=== PATIENT | female | born 1985 ===

== ENCOUNTER 2021-10-15 09:41 | Inpatient (IN) | payer OTHER ==
[2021-10-10 14:14] LABS: Hemoglobin 12.5 gm/dl (10.1-14.3); Mean Corpuscular HGB Conc 35 % (30-34); Mean Corpuscular Volume 97 fl (79-97); Platelet Count 241 K/mm3 (140-440); Red Blood Count 3.71 M/mm3 (3.65-5.03); Red Cell Distribution Width 14.1 % (13.2-15.2)
--- NOTE | 2021-10-15 09:26 | History and Physical Report ---
History of Present Illness Date of examination: 10/15/21 Medications and Allergies Allergies Allergy/AdvReac Type Severity Reaction Status Date / Time No Known Allergies Allergy Unverified 10/08/21 16:49 Home Medications Medication Instructions Recorded Confirmed Last Taken Type Vit-Fe Fumar-FA [ 1 tab PO QDAY 10/08/21 10/08/21 Unknown Hist ory Vitamin] - Vital Signs Vital signs: Vital Signs Temp Pulse Resp BP Pulse Ox 97.7 F 121 H 20 105/72 98 10/10/21 12:45 10/10/21 12:45 10/10/21 12:45 10/10/21 12:45 10/10/21 12:45 Temp Pulse Resp BP Pulse Ox 97.7 F 121 H 20 105/72 98 10/10/21 12:45 10/10/21 12:45 10/10/21 12:45 10/10/21 12:45 10/10/21 12:45 Results Result Diagrams: 10/10/21 13:40 All other labs normal.
[2021-10-15] MEDS ORDERED: METOCLOPRAMIDE 10 MG/2 ML INJ IV NR (09:43)
[2021-10-15] MEDS ORDERED: BICITRA ORAL LIQD 30ML PO NR (09:43)
[2021-10-15] MEDS ORDERED: FAMOTIDINE 20 MG/2 ML INJ IV NR (09:43)
[2021-10-15] MEDS ORDERED: OXYTOCIN DRIP 30 UNITS/500 ML BAG IV SCH ×3 (10:00→11:00)
[2021-10-15] MEDS ORDERED: ceFAZolin/Water 2 GM/20 ML 2 GM/20 ML SYRINGE IV NR (10:00)
--- NOTE | 2021-10-15 10:05 | Anesthesia Consultation ---
Anesthesia Consult and Med Hx Date of service: 10/15/21 - Airway Anesthetic Teeth Evaluation: Poor ROM Head & Neck: Adequate Mental/Hyoid Distance: Adequate Mallampati Class: Class II Intubation Access Assessment: Good - Pulmonary Exam CTA: Yes - Cardiac Exam Cardiac Exam: RRR - Pre-Operative Health Status ASA Pre-Surgery Classification: ASA2 Proposed Anesthetic Plan: Epidural - Pulmonary Hx Smoking: No Hx Asthma: No - Cardiovascular System Hx Hypertension: No - Central Nervous System Hx Neuromuscular Disorder: No Hx Seizures: No Hx Psychiatric Problems: No - Gastrointestinal Hx Gastroesophageal Reflux Disease: Yes - Hematic Hx Anemia: Yes - Other Systems Hx Alcohol Use: No Hx Substance Use: No Hx Cancer: No Hx Obesity: Yes
--- NOTE | 2021-10-15 10:05 | Anesthesia Day of Surgery ---
Anesthesia Day of Surgery - Day of Surgery Patient Examined: Yes Patient H&P Reviewed: Yes Patient is NPO: Yes
[2021-10-15] MEDS ORDERED: LIDOCAINE (2%) 20 MG/1 ML VIAL 20 ML MDV INFILTRATI NR (10:56)
[2021-10-15] MEDS ORDERED: AMPICILLIN/NS 2 GM/100 ML 2 GM/100 ML BAG IV ONE ×2 (10:56→14:04)
[2021-10-15] MEDS ORDERED: CARBOPROST TROMETHAMINE 250 MCG/1 ML INJ IM PRN (11:00)
[2021-10-15] MEDS ORDERED: TERBUTALINE 1 MG/1 ML INJ SUB-Q PRN (11:00)
[2021-10-15] MEDS ORDERED: LOPERAMIDE 2 MG CAP PO PRN (11:00)
[2021-10-15] MEDS ORDERED: miSOPROStol 200 MCG TAB PR PRN (11:00)
[2021-10-15] MEDS ORDERED: ACETAMINOPHEN 325 MG TAB PO PRN ×2 (11:00→17:10)
[2021-10-15] MEDS ORDERED: OXYTOCIN 10 UNIT/1 ML INJ IM PRN (11:00)
[2021-10-15] MEDS ORDERED: METHYLERGONOVINE MALEATE 0.2 MG/ML VIAL IM PRN (11:00)
[2021-10-15] MEDS ORDERED: BUTORPHANOL 2 MG/1 ML INJ IV PRN ×2 (11:00)
[2021-10-15] MEDS ORDERED: fentaNYL 100 MCG/2 ML INJ IV NR (11:00)
[2021-10-15] MEDS ORDERED: ePHEDrine SULFATE 50 MG/1 ML INJ IV PRN (11:00)
--- NOTE | 2021-10-15 11:07 | History and Physical Report ---
History of Present Illness Date of examination: 10/15/21 Date of admission: 10/15/21 09:41 Chief complaint: Presents for a scheduled repeat ; but having contractions and desires . History of present illness: Care of [facility]; course complicatd by Anemia (PO FeSO4); and a placenta previa (resolved 08/29/2021). Past History Past Medical History: other (Covid on 06/10/2021) Past Surgical History: [employer]/uterine surgery () [employer] History: chlamydia (2019) Family/Genetic History: none Social history: no significant social history - Obstetrical History Expected Date of Delivery: 10/22/21 Actual Gestation: 39 Week(s) 0 Day(s) : 3 Para: 2 Hx # Term Pregnancies: 2 Number of Living Children: 2 #1 Gender: Male year: 2,016 Birthweight: 3.629 kg Method of Delivery: Gestational age at delivery: 40 Complications: other ( Distress ()) #2 year: 2,013 Birthweight: 3.175 kg Method of Delivery: Gestational age at delivery: 40 Medications and Allergies Allergies Allergy/AdvReac Type Severity Reaction Status Date / Time No Known Allergies Allergy Unverified 10/08/21 16:49 Home Medications Medication Instructions Recorded Confirmed Last Taken Type Vit-Fe Fumar-FA [ 1 tab PO QDAY 10/08/21 10/08/21 Unknown History Vitamin] Active Meds: Active Medications Acetaminophen (Acetaminophen 325 Mg Tab) 650 mg PO Q4H PRN PRN Reason: Pain, Mild (1-3) Butorphanol Tartrate (Butorphanol 2 Mg/1 Ml Inj) 1 mg IV Q2H PRN PRN Reason: Pain, Moderate(4-6) LABOR PAIN Butorphanol Tartrate (Butorphanol 2 Mg/1 Ml Inj) 2 mg IV Q2H PRN PRN Reason: Pain , Severe (7-10) Carboprost Tromethamine (Carboprost Tromethamine 250 Mcg/1 Ml Inj) 250 mcg IM ONCE PRN PRN Reason: Uterine Bleeding Citric Acid/Sodium Citrate (Bicitra Oral Liqd 30ml) 30 ml PO ONCE NR Stop: 10/15/21 20:00 Ephedrine Sulfate (Ephedrine Sulfate 50 Mg/1 Ml Inj) 10 mg IV Q2M PRN PRN Reason: Hypotension Famotidine (Famotidine 20 Mg/2 Ml Inj) 20 mg IV ONCE NR Stop: 10/15/21 20:00 Fentanyl (Fentanyl 100 Mcg/2 Ml Inj) 100 mcg IV ONCE ONE Stop: 10/15/21 11:01 Lactated Ringer's (Lactated Ringers) 1,000 mls @ 2,250 mls/hr IV PREOP BRITTA Stop: 10/16/21 10:27 Oxytocin/Sodium Chloride (Pitocin/Ns 30 Unit/500ml) 30 units in 500 mls @ 0 mls/hr IV TITR BRITTA; Protocol Cefazolin Sodium (Ancef/Sterile Water 2 Gm/20 Ml) 2 gm in 20 mls @ 80 mls/hr IV PREOP NR; Protocol Stop: 10/15/21 20:00 Oxytocin/Sodium Chloride (Pitocin/Ns 30 Unit/500ml) 30 units in 500 mls @ 2 mls/hr IV TITR BRITTA; Protocol Oxytocin/Sodium Chloride (Pitocin/Ns 30 Unit/500ml) 30 units in 500 mls @ 40 mls/hr IV TITR BRITTA; Protocol Ampicillin Sodium (Ampicillin/Ns 1 Gm/50 Ml) 1 gm in 50 mls @ 100 mls/hr IV Q4H BRITTA; Protocol Ampicillin Sodium (Ampicillin/Ns 2 Gm/100 Ml) 2 gm in 100 mls @ 100 mls/hr IV ONCE ONE; Protocol Stop: 10/15/21 11:55 Lidocaine (Lidocaine (2%) 20 Mg/1 Ml Vial 20 Ml Mdv) 20 ml INFILTRATI ONCE ONE Stop: 10/15/21 10:57 Loperamide HCl (Loperamide 2 Mg Cap) 2 mg PO ONCE PRN PRN Reason: give with Hemabate Methylergonovine Maleate (Methylergonovine Maleate 0.2 Mg/Ml Vial) 0.2 mg IM ONCE PRN PRN Reason: Uterine Bleeding Metoclopramide HCl (Metoclopramide 10 Mg/2 Ml Inj) 10 mg IV ONCE NR Stop: 10/15/21 20:00 Mineral Oil (Mineral Oil 30 Ml Oral Liqd) 30 ml PO QHS PRN PRN Reason: Constipation Misoprostol (Misoprostol 200 Mcg Tab) 800 mcg [place] ONCE PRN PRN Reason: Uterine Bleeding Oxytocin (Oxytocin 10 Unit/1 Ml Inj) 10 unit IM ONCE PRN PRN Reason: Uterine Bleeding Terbutaline Sulfate (Terbutaline 1 Mg/1 Ml Inj) 0.25 mg SUB-Q ONCE PRN PRN Reason: Hyperstimulation/Hypertonicity Review of Systems All systems: negative - Vital Signs Vital signs: Vital Signs Temp Pulse Resp BP Pulse Ox 97.7 F 121 H 20 105/72 98 10/10/21 12:45 10/10/21 12:45 10/10/21 12:45 10/10/21 12:45 10/10/21 12:45 Temp Pulse Resp BP Pulse Ox 98.2 F 101 H 18 105/75 94 10/15/21 10:06 10/15/21 10:59 10/15/21 10:06 10/15/21 10:06 10/15/21 10:59 - Physical Exam Breasts: Positive: normal Cardiovascular: Regular rate Lungs: Positive: Clear to auscultation Abdomen: Positive: normal appearance, soft, normal bowel sounds Genitourinary (Female): Positive: normal external genitalia, normal perenium Vagina: Positive: normal moisture Uterus: Positive: enlarged - Obstetrical FHR: category 1 Uterine Contraction Monitor Mode: External Cervical Dilatation: 6 (ROM upon exam of a moderate amount of clear fluid @ 1 045; VTX) Cervical Effacement Percentage: 70 station: -3 Uterine Contraction Frequency (min): 3 Uterine Contraction Pattern: Regular Uterine Tone Measurement Phase: Resting Uterine Contraction Intensity: Moderate Results Result Diagrams: 10/10/21 13:40 All other labs normal. Assessment and Plan A: IUP @ 39 Weeks Category I Tracing Previous Active Labor AMA GBS Unknown P: Admit to L&D Per Routine Orders Dr. Flores agrees to trail of labor for GBS Prophylaxis
--- NOTE | 2021-10-15 11:27 | Ultrasound Report ---
US OB limited INDICATION: presetaion,placental location. TECHNIQUE: Transabdominal. COMPARISON: None available. FINDINGS: There is a single intrauterine . Heart Rate: 150 beats per minute. Position: cephalic. Signer Name: Amrit Mccarthy MD Signed: 10/15/2021 11:22 AM Workstation Name: [id number]
[2021-10-15 12:53] LABS: Basophils % (Auto) 0.2 % (0.0-1.8); Eosinophils % (Auto) 0.2 % (0.0-4.3); Hematocrit 39.3 % (30.3-42.9); Hemoglobin 13.3 gm/dl (10.1-14.3); Lymphocytes # (Auto) 2.1 K/mm3 (1.2-5.4); Lymphocytes % (Auto) 18.2 % (13.4-35.0); Mean Corpuscular HGB Conc 34 % (30-34); Mean Corpuscular Volume 96 fl (79-97); Monocytes # (Auto) 0.7 K/mm3 (0.0-0.8); Monocytes % (Auto) 5.8 % (0.0-7.3); Platelet Count 240 K/mm3 (140-440); Red Blood Count 4.07 M/mm3 (3.65-5.03); Red Cell Distribution Width 13.9 % (13.2-15.2)
[2021-10-15] MEDS: LACTATED RINGERS 1,000 ML IV SCH ×2 (14:31→15:32)
--- NOTE | 2021-10-15 16:05 | Progress Note ---
Assessment and Plan A: IUP @ 39 Weeks Category I Tracing Previous Protracted Labor AMA GBS Unknown P: Internals x 2 Placed Continue Pitocin Augmentation Continue GBS Prophylaxis Dr. Flores Consulted Subjective - Subjective Date of service: 10/15/21 Interval history: Care of [facility]; course complicatd by Anemia (PO FeSO4); and a placenta previa (resolved 08/29/2021). Patient reports: movement normal, contractions Objective - Vital Signs Vital Signs: Vital Signs - 12hr 10/15/21 10/15/21 10/15/21 10:03 10:04 10:06 Temperature 98.2 F Pulse Rate 90 Respiratory 18 Rate Blood Pressure 105/75 Blood Pressure 105/75 [Right] O2 Sat by Pulse 100 97 Oximetry O2 Sat by Pulse Oximetry [ Anterior Bilateral Throughout] 10/15/21 10/15/21 10/15/21 10:08 10:13 10:18 Temperature Pulse Rate 95 H 121 H 109 H Respiratory Rate Blood Pressure Blood Pressure [Right] O2 Sat by Pulse 96 96 96 Oximetry O2 Sat by Pulse Oximetry [ Anterior Bilateral Throughout] 10/15/21 10/15/21 10/15/21 10:23 10:28 10:33 Temperature Pulse Rate 122 H 85 114 H Respiratory Rate Blood Pressure Blood Pressure [Right] O2 Sat by Pulse 98 94 97 Oximetry O2 Sat by Pulse Oximetry [ Anterior Bilateral Throughout] 10/15/21 10/15/21 10/15/21 10:39 10:44 10:45 Temperature Pulse Rate 87 117 H 115 H Respiratory Rate Blood Pressure Blood Pressure [Right] O2 Sat by Pulse 93 96 94 Oximetry O2 Sat by Pulse Oximetry [ Anterior Bilateral Throughout] 10/15/21 10/15/21 10/15/21 10:49 10:54 10:59 Temperature Pulse Rate 101 H 98 H 101 H Respiratory Rate Blood Pressure Blood Pressure [Right] O2 Sat by Pulse 92 93 94 Oximetry O2 Sat by Pulse Oximetry [ Anterior Bilateral Throughout] 10/15/21 10/15/21 11:04 11:41 Temperature Pulse Rate 100 H Respiratory Rate Blood Pressure Blood Pressure [Right] O2 Sat by Pulse 91 Oximetry O2 Sat by Pulse 97 Oximetry [ Anterior Bilateral Throughout] - Exam Breasts: normal Cardiovascular: Regular rate Lungs: Normal air movement Abdomen: Present: normal appearance, soft Uterus: Present: normal, firm, fundal height above umbilicus FHR: category 1 Uterine Contraction Monitor Mode: Internal Cervical Dilatation: 6.5 Cervical Effacement Percentage: 70 station: -2 Uterine Contraction Pattern: Irregular Uterine Tone Measurement Phase: Resting Uterine Contraction Intensity: Moderate Extremities: normal - Labs Labs: Abnormal Labs 10/10/21 10/15/21 13:40 12:19 WBC 11.4 H MCH 34 H 33 H MCHC 35 H Seg Neutrophils % 75.6 H Seg Neutrophils # 8.6 H Laboratory Results - last 24 hr 10/15/21 12:19 WBC 11.4 H RBC 4.07 Hgb 13.3 Hct 39.3 MCV 96 MCH 33 H MCHC 34 RDW 13.9 Plt Count 240 Lymph % (Auto) 18.2 Greene % (Auto) 5.8 Eos % (Auto) 0.2 Baso % (Auto) 0.2 Lymph # (Auto) 2.1 Greene # (Auto) 0.7 Eos # (Auto) 0.0 Baso # (Auto) 0.0 Seg Neutrophils % 75.6 H Seg Neutrophils # 8.6 H
[2021-10-15] MEDS ORDERED: PROMETHAZINE 25 MG RECT SUPP PR PRN (17:10)
[2021-10-15] MEDS ORDERED: MAGNESIUM HYDROXIDE (MOM) ORAL LIQD UDC PO PRN (17:10)
[2021-10-15] MEDS ORDERED: LANOLIN/ZINC/DIMETHICONE (LANSINOH) 7 GM TP PRN (17:10)
[2021-10-15] MEDS ORDERED: diphenhydrAMINE 25 MG CAP PO PRN (17:10)
[2021-10-15] MEDS ORDERED: HYDROcodone/ACETAMINOPHEN 5-325 MG TAB PO PRN (17:10)
[2021-10-15] MEDS ORDERED: oxyCODONE /ACETAMINOPHEN 5-325MG TAB PO PRN (17:10)
[2021-10-15] MEDS ORDERED: PROMETHAZINE 25 MG TAB PO PRN (17:10)
[2021-10-15] MEDS ORDERED: KETOROLAC 30 MG/1 ML INJ IV PRN (17:10)
[2021-10-15] MEDS ORDERED: WITCH HAZEL/ GLYCERIN PAD TP PRN (17:10)
[2021-10-15] MEDS ORDERED: ONDANSETRON 4 MG/2 ML INJ IV PRN (17:10)
--- NOTE | 2021-10-15 17:36 | Procedure Note ---
OB Delivery Note - Delivery Date of Delivery: 10/15/21 Surgeon: YAEL HERNANDEZ Estimated blood loss: other (250) - Vaginal Delivery presentation: vertex Delivery position: OA Intrapartum events: prolonged active phase Delivery induction: none Delivery augmentation: pitocin Delivery monitor: internal FHT, internal uterine Route of delivery: Delivery placenta: spontaneous Delivery cord: 3 umbilical vessels, other (short cord) Episiotomy: none Delivery laceration: 1st degree Delivery repair: vicryl Anesthesia: local Delivery comments: of a live 7'8 male over 1st degree bilateral labial lacerations and 1st degree vaginal laceration under IV pain control with Apgars of 8 and 9 at 1653 on 10/15/2021. Infant directly to maternal abd/chest, skin to skin contact. Vaginal lacerations repaired with 2-[address]-1 under local 2% Lidocaine. Spontaneous delivery of placenta complete and intact with Haskins side presenting at 1700. Fundus is firm and midline located 4 below U. Lochia is scant. Cord blood collected; Placenta discarded. Delayed cord clamping and cutting; Cord cut by the Father of the baby. GBS prophylaxis x 1. - A at 1 minute: 8 at 5 minutes: 9 Infant Gender: Male (7'8)
[2021-10-15] MEDS ORDERED: AMPICILLIN/NS 1 GM/50 ML 1 GM/50 ML BAG IV SCH (18:00)
[2021-10-15] MEDS: IBUPROFEN 600 MG TAB PO SCH ×2 (18:52→23:31)
[2021-10-15] MEDS ORDERED: MINERAL OIL 30 ML ORAL LIQD PO PRN (22:00)
[2021-10-16] MEDS: IBUPROFEN 600 MG TAB PO SCH ×3 (05:27→16:34)
[2021-10-16 09:32] LABS: Hematocrit 30.5 % (30.3-42.9); Hemoglobin 10.2 gm/dl (10.1-14.3)
--- NOTE | 2021-10-16 09:32 | Progress Note ---
Subjective - Subjective Date of service: 10/16/21 Objective - Vital Signs Latest vital signs: Vital Signs Temp Pulse Resp BP BP Pulse Ox Pulse Ox 10/16/21 08:16 99 10/16/21 07:48 97.6 F 104 H 18 93/67 99 10/16/21 05:27 20 10/16/21 05:00 98.9 F 101 H 20 119/68 100 10/15/21 23:57 98.2 F 99 H 20 109/63 99 10/15/21 23:31 20 10/15/21 21:19 98.2 F 113 H 20 98/61 98 10/15/21 19:45 99 10/15/21 18:32 99.1 F 99 H 18 120/73 99 10/15/21 18:19 101 H 98 10/15/21 18:14 107 H 98 10/15/21 18:09 109 H 98 10/15/21 18:07 111 H 105/65 10/15/21 18:04 108 H 97 10/15/21 17:59 108 H 97 10/15/21 17:57 114 H 150/77 10/15/21 17:54 110 H 97 10/15/21 17:50 98.0 F 10/15/21 17:49 111 H 97 10/15/21 17:44 110 H 98 10/15/21 17:39 31 L 95 10/15/21 17:37 110 H 132/75 10/15/21 17:26 102 H 110/64 10/15/21 17:16 103 H 110/64 10/15/21 17:07 102 H 105/62 10/15/21 16:49 107 H 126/73 10/15/21 16:39 109 H 133/78 10/15/21 14:00 98.8 F 10/15/21 12:02 98.8 F 10/15/21 11:41 97 10/15/21 11:04 100 H 91 10/15/21 10:59 101 H 94 10/15/21 10:54 98 H 93 10/15/21 10:49 101 H 92 10/15/21 10:45 115 H 94 10/15/21 10:44 117 H 96 10/15/21 10:39 87 93 10/15/21 10:33 114 H 97 10/15/21 10:28 85 94 05/02/22 10:23 122 H 98 10/15/21 10:18 109 H 96 10/15/21 10:13 121 H 96 10/15/21 10:08 95 H 96 10/15/21 10:06 98.2 F 18 105/75 97 10/15/21 10:04 90 105/75 10/15/21 10:03 100 Intake and Output 10/15/21 10/16/21 10/16/21 23:59 07:59 15:59 Intake Total 240 Output Total 400 600 Balance -160 -600 Intake: Oral 240 Output: Urine 400 600 Void 400 600 Other: Total, Intake Amount 240 Total, Output Amount 400 600 # Voids Void 1 2 Estimated Blood Loss 200 - Labs Labs: Abnormal lab results 10/15/21 Range/Units 12:19 WBC 11.4 H (4.5-11.0) K/mm3 MCH 33 H (28-32) pg Seg Neutrophils % 75.6 H (40.0-70.0) % Seg Neutrophils # 8.6 H (1.8-7.7) K/mm3
--- NOTE | 2021-10-16 13:05 | Discharge Summary ---
Providers - Providers Date of Admission: 10/15/21 09:41 10/15/21 Date of discharge: 10/17/21 Attending physician: AARON HOANG MD none Primary care physician: AARON HOANG MD Hospitalization Delivery: Episiotomy: none Laceration: 1st degree complications: none Discharge diagnosis: IUP at term delivered, baby: male Hospital course: unremarkable Condition at discharge: Good Disposition: 01 HOME / SELF CARE / HOMELESS - Discharge Diagnoses (1) , delivered Status: Acute Comment: patient delivered without complications Plan - Provider Discharge Summary Additional instructions: [] Smoking cessation referral if applicable(refer to patient education folder for contact #) [] Refer to [facility] Booklet Call your doctor immediately for: * Fever > 100.5 * Heavy vaginal bleeding ( >1 pad per hour) * Severe persistent headache * Shortness of breath * Reddened, hot, painful area to leg or breast * Drainage or odor from incision. * Keep incision clean and dry at all times and follow doctor's instructions regarding bathing/showering - Follow up plan Follow up: AARON HOANG MD [Primary Care Provider] - 7 Days
[2021-10-17] MEDS: IBUPROFEN 600 MG TAB PO SCH ×3 (00:28→12:07)
[2021-10-17 17:43] VITALS: BP 100/63
== END 2021-10-17 18:25 | disposition home or self-care (01) | DRG 806 ==
LOC: APU 09:41 → LD 11:57 → OB 18:29
PROVIDERS: ADMIT Obstetrics & Gynecology; ATTEND Obstetrics & Gynecology
PROC: 10E0XZZ Delivery of Products of Conception, External Approach (ICD-10-PCS; principal; 2021-10-15)
PROC: 0HQ9XZZ Repair Perineum Skin, External Approach (ICD-10-PCS; 2021-10-15)
DX: O34.211 Maternal care for low transverse scar from previous cesarean delivery (principal); O63.9 Long labor, unspecified; Z37.0 Single live birth; Z3A.39 39 weeks gestation of pregnancy; O70.0 First degree perineal laceration during delivery; Z20.822 Contact with and (suspected) exposure to COVID-19
CPT/HCPCS: 36415; 76815; 85014; 85018; 85025; 85027; 86592; 86850; 86900; 86901; 99211; G0378; J3490; G0463; J0290; J0595; J2590; J7120; U0003